=== PATIENT | female | born 1975 | race Caucasian/White ===

== ENCOUNTER 2017-11-18 06:38 | Day surgery (SDC) | payer MEDICAID ==
[2017-11-18] MEDS ORDERED: Sodium Chloride 0.9% 10 ML Syringe FLUSH PRN (06:45)
[2017-11-18] MEDS: Lactated Ringers 1,000 ML IV SCH (07:40)
[2017-11-18] MEDS ORDERED: Midazolam 1 MG/ML 2 ML SDV IV ONE (08:00)
[2017-11-18] MEDS ORDERED: Propofol 200 MG/20 ML SDV IV ONE (08:00)
--- NOTE | 2017-11-18 08:19 | PCM.OPNOTE ---
- General Post-Op/Procedure Note Date of Surgery/Procedure: 11/18/17 Operative Procedure(s): c scope Findings: internal hemorrhoids Pre Op Diagnosis: hematochezia Post-Op Diagnosis: internal hemorrhoids Anesthesia Technique: LUIS Primary Surgeon: En Srivastava Anesthesia Provider: Grisel Ortiz Pathology: none Complications: None Condition: Good Free Text/Narrative:: see dictation
[2017-11-18 11:46] VITALS: BP 129/87
--- NOTE | 2017-11-18 15:51 | OR ---
DATE OF OPERATION: 11/18/2017 SURGEON: En Srivastava MD PROCEDURE PERFORMED: Colonoscopy. PREOPERATIVE DIAGNOSIS: Hematochezia. POSTOPERATIVE DIAGNOSIS: Internal hemorrhoids. INDICATIONS FOR PROCEDURE: This is a 42-year-old white female who is referred with a history of some bright red blood per rectum. In addition, she has had some crampy abdominal pain. She was offered and accepted C scope. DESCRIPTION OF OPERATION: After an excellent IV sedation was administered, digital rectal exam was performed. No marked abnormality was noted. The flexible colonoscope was inserted and advanced without difficulty to the cecum. The prep was excellent. The following findings were noted: Ascending colon, unremarkable. Transverse colon, unremarkable. Descending colon, unremarkable. Sigmoid and rectum unremarkable. There was some evidence of internal hemorrhoids which is the presumed cause of her hematochezia. The colon was deflated. The scope was removed. The patient tolerated the procedure well, and was taken to recovery room in good condition. I am recommending the addition of a high-fiber diet as well as plain fluid and followup as needed. /[id number] /MODL
== END 2017-11-18 09:37 | disposition home or self-care (01) ==
LOC: FB.SDS 06:38
PROVIDERS: ATTEND Surgery
DX: K92.1 Melena (principal); K64.8 Other hemorrhoids; G43.909 Migraine, unspecified, not intractable, without status migrainosus; J45.909 Unspecified asthma, uncomplicated; I10 Essential (primary) hypertension; F32.9 Major depressive disorder, single episode, unspecified; R56.9 Unspecified convulsions; Z79.51 Long term (current) use of inhaled steroids; Z79.899 Other long term (current) drug therapy
CPT/HCPCS: J2250; J2704; J7120